=== PATIENT | female | born 2005 | race Two or more races ===

== ENCOUNTER 2025-08-01 22:38 | Emergency (ER) | payer MEDICAID, SELFPAY ==
[2025-08-01 22:52] VITALS: BP 143/88; PULSE 70; RESP 16; TEMP 36.9; O2SAT 97
--- NOTE | 2025-08-01 23:02 | XR_ITS ---
Examination: Abdomen sonogram, Limited Date and time of exam: August 01, 2025, 11:35 p.m. INDICATIONS: Right upper abdominal pain beginning 1 month ago Technique: Real-time lea scale transabdominal sonographic images of the upper abdomen obtained. Findings: Cholelithiasis, normal gallbladder wall Normal common bile duct 0.3 cm Pancreatic head 2.2 cm Liver 16.3 cm smooth contour no focal liver lesions Normal hepatopetal portal venous flow Patent IVC IMPRESSION: Cholelithiasis, negative for cholecystitis Normal common bile duct Mild hepatomegaly
--- NOTE | 2025-08-01 23:03 | EDRME_ITS ---
Rapid Medical Screening Exam [facility] Arrival date/time: 08/01/25 22:38 19F with no significant PMH presents to ED with 1 month of back/RUQ pain and N/V that got worse today. Patient denies dysuria/hematuria and is not on her cycle. Chief Complaint: Back Pain/Injury Vital signs: Vital Signs Temperature 98.4 F 08/01/25 22:52 Pulse Rate 70 08/01/25 22:52 Respiratory Rate 16 08/01/25 22:52 Blood Pressure 143/88 H 08/01/25 22:52 Pulse Oximetry (%) 97 08/01/25 22:52 Oxygen Delivery Method Room Air 08/01/25 22:52 Exam: RUQ tenderness. Clinical Impression: Biliary disease vs kidney stone vs UTI/pyelo vs CKD/MARIAH vs gastritis vs ab pain
[2025-08-01] MEDS: ONDANSETRON ODT 4 MG TABRAP PO (23:18)
[2025-08-01 23:33] LABS: Basophils # (Auto) 0.1 Thou/mm3 (0.0-0.2); Basophils % (Auto) 1 % (0-2.5); Eosinophils # (Auto) 0.3 Thou/mm3 (0.0-0.5); Eosinophils % (Auto) 3 % (0-10); Hematocrit 42.4 % (36.0-46.0); Hemoglobin 14.5 g/dL (12.0-16.0); Immature Granulocytes Auto 0.02 Thou/mm3 (0.00-0.00); Lymphocytes # (Auto) 3.5 Thou/mm3 (1.0-4.8); Lymphocytes % (Auto) 36 % (10-50); Mean Corpuscular HGB Conc 34.2 g/dl (31.0-37.0); Mean Corpuscular Hemoglobin 28.9 pg (25.0-35.0); Mean Corpuscular Volume 85 fL (80-100); Monocytes # (Auto) 0.7 Thou/mm3 (0.0-0.8); Monocytes % (Auto) 7 % (0-12); Neutrophils # (Auto) 5.3 Thou/mm3 (1.8-7.7); Neutrophils % (Auto) 54 % (37-80); Nucleated Red Blood Cell # 0.00 Thou/mm3 (0.00-0.00); Nucleated Red Blood Cell % 0 /100 WBC (0); Platelet Count 275 Thou/mm3 (140-440); RDW Standard Deviation 39.5 fL (36.4-46.3); Red Blood Count 5.01 Miln/mm3 (4.00-5.20); White Blood Count 9.8 Thou/mm3 (4.5-11.0)
[2025-08-01 23:54] LABS: Alanine Aminotransferase 25 U/L (10-49); Albumin, Serum 5.0 gm/dL (3.5-5.0); Albumin/Globulin Ratio 1.9 (1.2-2.2); Alkaline Phosphatase 97 U/L (46-116); Anion Gap 10 (7-16); Aspartate Amino Transferase 18 U/L (0-34); BUN/Creatinine Ratio 10 Ratio (12-20); Bilirubin,Total 0.2 mg/dL (0.3-1.2); Blood Urea Nitrogen 6 mg/dL (9-23); Calcium 9.6 mg/dL (8.3-10.6); Calcium (Corrected) 9.6 mg/dL (8.5-10.1); Carbon Dioxide 26.0 mMol/L (20.0-31.0); Chloride 106 mMol/L (98-107); Creatinine (Component) 0.6 mg/dL (0.6-1.3); Estimated Creatinine Clearance 152.5 mL/min (>60); Globulin 2.6 gm/dL (2.3-3.5); Glucose 130 mg/dL (74-106); Lipase 43 U/L (12-53); Osmolality,Calculated 282 (275-295); Potassium 3.8 mMol/L (3.4-5.1); Sodium 142 mMol/L (136-145); Total Protein 7.6 gm/dL (5.7-8.2); eGFR > 60 See Note
[2025-08-02 00:20] LABS: Collection Type, Urine Clean Catch
[2025-08-02 00:41] LABS: Amorphous Crystals,Urine Present (Absent); Bacteria,Urine Rare; Bilirubin,Urine Negative (Negative); Blood,Urine Negative (Negative); Clarity,Urine Turbid (Clear/Hazy); Color,Urine Lt-Yellow (Lt Yel-Yel); Culture Indicated,Urine Not Indicated; Glucose, Urine Negative (Negative); Ketones,Urine Negative (Negative); Leukocyte Esterase,Urine Negative (Negative); Nitrite,Urine Negative (Negative); PH,Urine 7.0 (5.0-7.0); Protein,Urine Negative (Neg - Trace); RBC,Urine 2 /hpf (0-3); Specific Gravity,Urine 1.012 (1.001-1.035); Squamous Epithelial Cell,Urine < 1 /hpf (0-5); Urobilinogen,Urine Negative mg/dL (0.0-1.0); WBC,Urine < 1 /hpf (0-5)
[2025-08-02 00:44] LABS: Amphetamine/Methamp Scrn,U Negative (Negative); Barbiturate Screen,Urine Negative (Negative); Benzodiazepines Screen,Urine Negative (Negative); Benzoylecgonine Screen, Ur Negative (Negative); Fentanyl Screen,Urine Negative (Negative); Opiate Screen,Urine Negative (Negative); THC Screen,Urine Negative (Negative)
[2025-08-02 01:02] LABS: HCG Qualitative,Urine Negative
[2025-08-02 01:15] VITALS: BP 120/76; PULSE 71; RESP 18; TEMP 37.1; O2SAT 96
--- NOTE | 2025-08-02 01:15 | PRELIM_ITS ---
Gallbladder ultrasound with Doppler and wave Doppler spectral analysis. August 01, 2025 at 23:35 hours Clinical history: Right upper quadrant pain. Comparison: No prior study is available for comparison available at the time of this report. Findings: Hyperechoic liver. Gallstone. Distended gallbladder. No gallbladder wall thickening or pericholecystic fluid is identified. The common duct is normal in caliber at 2.7 mm. No free fluid is demonstrated on the submitted images. The portal vein is patent with hepatopetal flow and normal wave Doppler spectral analysis. The hepatic veins are patent with normal wave Doppler spectral analysis. Impression: Gallstone and distended gallbladder without evidence of acute cholecystitis, consider correlation with HIDA scan if clinically indicated. Liver steatosis. Report Electronically Signed By: Lemuel Sims 08/02/2025 1:14:38 AM [EST]
[2025-08-02 02:59] VITALS: BP 114/74; PULSE 75; RESP 16; TEMP 36.6; O2SAT 98
--- NOTE | 2025-08-02 03:07 | PD.EDBACK ---
ED Back Injury Pain RME/HPI General Chief Complaint: Back Pain/Injury Stated Complaint: BACK PAIN RADIATING TO RIGHT UPPER ABD NAUSEA Arrival date/time: 08/01/25 22:38 RME / HPI RME / HPI Narrative: 08/01/25 22:38 19F with no significant PMH presents to ED with 1 month of back/RUQ pain and N/V that got worse today. Patient denies dysuria/hematuria and is not on her cycle. Dr. Romero?s Main ED Evaluation: 19yo female with no significant past medical history presents to the ED for a chief complaint of intermittent RUQ pain that radiates to her back x 1 month. Patient states her pain became more constant tonight and was concerned, so she came in for evaluation. Patient reports associated nausea. She denies any vomiting, fever, chills, or any other associated symptoms. NKA. Related Data Previous Rx's ?Medication ?Instructions ?Recorded dicyclomine 20 mg tablet 20 mg PO QID PRN abdominal pain 08/02/25 #20 tabs Allergies Allergy/AdvReac Type Severity Reaction Status Date / Time No Known Allergies Allergy Verified 08/01/25 22:39 Review of Systems Review of Systems Systems Reviewed: All systems reviewed, normal except as documented Past Medical History Social History SMOKING STATUS: Never smoker ED Exam Narrative Physical exam: Generally patient is alert and in no obvious distress, heart regular rate and rhythm, lungs clear to auscultation equal bilaterally, abdomen soft bowel sounds present nondistended nontender currently, musculoskeletal exam showed no costovertebral angle tenderness, skin is warm pale and dry Course Quality Measures none Orders Category Date Time Status US gall bladder Stat Exams 08/01/25 23:02 Taken CBC Stat Lab 08/01/25 23:15 Completed CMP [Comprehensive Metabolic Panel] Stat Lab 08/01/25 23:15 Completed Drug Screen,Urine Stat Lab 08/01/25 23:02 Completed HCG Qualitative,Urine Stat Lab 08/01/25 23:02 Completed Lipase Stat Lab 08/01/25 23:15 Completed Urinalysis, C/S if Indicated Stat Lab 08/01/25 23:02 Completed Ondansetron Odt [Zofran Odt] Med 08/01/25 23:02 Discontinued 4 mg PO X1 ONE Vital Signs Vital signs: Vital Signs Temperature 98.4 F 11/25/25 22:52 Pulse Rate 70 08/01/25 22:52 Respiratory Rate 16 08/01/25 22:52 Blood Pressure 143/88 H 08/01/25 22:52 Pulse Oximetry (%) 97 08/01/25 22:52 Oxygen Delivery Method Room Air 08/01/25 22:52 Back Pain / Injury MDM Narrative MDM Narrative:: Scribe Attestation: 08/02/25 - Cary Amaya am scribing for and in the presence of Dr. Romero. There is no fever or leukocytosis. LFTs are normal. Gallbladder ultrasound showed a gallstone without pericholecystic fluid or wall thickening within normal size common bile duct of 2 mm. Patient will be given a prescription for Bentyl to be taken as prescribed. She is to avoid hot spicy greasy fatty foods. Follow-up with her doctor. Return to ER as needed or if condition worsens. On this visit there is no sign of cholecystitis or choledocholithiasis. Patient data External records reviewed:: [facility] previous records (Per chart review, patient has no previous ED visits to this facility.) Clinical information provided by:: patient Social determinants that could affect healthcare access:: none Patient has the following chronic illnesses:: none How is presenting disease/condition affected by chronic disease/condition?: no chronic disease Evaluation data The following diagnostics were reviewed and interpreted by me:: lab results and radiology exam(s) Lab and/or radiology exams considered but not ordered:: none Interpretation Summary: Telerad Preliminary Report Draft Patient: MARIA E NAIK [facility]. Record#: [id number] Birthdate: 2005 Age/Sex: 19 / F Location: [facility] Attending Dr: Ordering Physician: Date of Service: Procedure(s): Accession Number(s): cc: ~ Gallbladder ultrasound with Doppler and wave Doppler spectral analysis. August 01, 2025 at 23:35 hours Clinical history: Right upper quadrant pain. Comparison: No prior study is available for comparison available at the time of this report. Findings: Hyperechoic liver. Gallstone. Distended gallbladder. No gallbladder wall thickening or pericholecystic fluid is identified. The common duct is normal in caliber at 2.7 mm. No free fluid is demonstrated on the submitted images. The portal vein is patent with hepatopetal flow and normal wave Doppler spectral analysis. The hepatic veins are patent with normal wave Doppler spectral analysis. Impression: Gallstone and distended gallbladder without evidence of acute cholecystitis, consider correlation with HIDA scan if clinically indicated. Liver steatosis. Report Electronically Signed By: Lemuel Sims 08/02/2025 1:14:38 AM Medications / Prescriptions Medications or Prescriptions considered but not ordered:: none Medication administrations:: Medication Administration History Discontinued Medications Ondansetron HCl (Ondansetron Odt 4 Mg Tabrap) 4 mg PO X1 ONE; Protocol Stop: 08/01/25 23:03 Last Admin: 08/01/25 23:18 Dose: 4 mg Documented By: BIJAN see above Consultations Consultation(s) initiated? (list below): No Diagnosis Differential diagnosis back pain/injury: other (See MDM) Most likely diagnosis given after review of the tests above:: see clinical impression below Admission Indicated Admission indicated?: not indicated Admission Request Was there a request for admission?: No Disposition Plan Disposition Plan: Discharge Discharge Attestation Discharge Attestation: The patient and all family members were given an opportunity to ask questions and understood the discharge instructions. Discharge instructions specifically effects, indications for sooner follow up or return to the emergency department, and the expected course of current diagnosis. Patient condition: Stable Discharge Plan Plan Patient Disposition: HOME (Self Care) Prescriptions/Referrals Prescriptions/Med Rec: New dicyclomine 20 mg tablet 20 mg PO QID PRN (Reason: abdominal pain) Qty: 20 0RF Referrals: No Primary/Family,Physician [Primary Care Provider] - In 1 week Problem List Clinical Impression: Cholelithiasis Patient/Caregiver Discharge Instructions Education Materials: ED Gallstones with Biliary Colic Additional Instructions: Avoid hot spicy greasy fatty foods. Bentyl as prescribed. Follow-up with your doctor as needed. Return if pain increases or fever develops. Print Language: [place] Stand Alone Forms: Jessy Award Info., Patient Portal Info Letter
== END 2025-08-02 03:26 | disposition home or self-care (01) ==
PROVIDERS: Physician Assistant; Emergency Provider Emergency Medicine
DX: K80.20 Calculus of gallbladder without cholecystitis without obstruction (principal); K76.0 Fatty (change of) liver, not elsewhere classified
CPT/HCPCS: 36415; 76705; 80053; 80307; 81001; 81025; 83690; 85025; 99283; Q0162